=== PATIENT | female | born 1955 | race Caucasian/White ===

== ENCOUNTER 2017-03-20 19:29 | Emergency (ER) | payer OTHER ==
[2017-03-20 19:44] VITALS: BP 131/77; PULSE 75; TEMP 97.8; BMI 20.7
--- NOTE | 2017-03-20 20:50 | PDOC ---
History of Present Illness - General Chief Complaint: Pain, Acute Stated Complaint: LEFT KNEE PAIN Time Seen by Provider: 03/20/17 20:14 History Source: Patient Exam Limitations: No Limitations - History of Present Illness Initial Comments: 03/20/17 20:45 CHIEF COMPLAINT: Left knee pain HISTORY OF PRESENT ILLNESS: She is a 61-year-old female, history of Mnire's disease otherwise unremarkable yet has seen Dr. rushing in the last week for pain to left knee. Was diagnosed with arthritic changes. After seeing Dr. rushing was home went to open the window turned and felt a strain to left knee was unable to initially bear weight now able to ambulate with minor pain. Pain to left posterior knee. There is no erythema edema or deformity. REVIEW OF SYSTEMS: GENERAL: Afebrile, A&O x3 RESPIRATORY: No cough, wheezing, or hemoptysis. CARDIAC: No CP or SOB MUSCULOSKELETAL: Pain to left posterior knee no anterior pain SKIN : No erythema, no edema, no bruising, no deformity. NEUROLOGICAL: Denies any numbness or tingling. PHYSICAL EXAM: GENERAL: The patient is awake, alert, and fully oriented, in no acute distress. HEAD: Normal with no signs of trauma. RESPIRATORY: Lungs clear bilaterally no rhonchi, rales, or wheezes CARDIAC: S1-S2 audible, no murmur rub or gallop EXTREMITIES: Decreased range of motion to left knee related to pain, no fluid appreciated, no bulge sign. No pain to superior or inferior patella. Negative drop test. Negative posterior leg test. No joint laxity noted, no ecchymosis, no deformity, no abrasions ,no edema. +3 popliteal pulse. Negative Homans sign. No calf pain or tenderness, no erythema or edema. MUSCULOSKELETAL: No spinal point tenderness. SKIN: Warm, Dry, normal turgor, no erythema, no edema no bruising. Past History - Past Medical History Allergies/Adverse Reactions: Allergies Allergy/AdvReac Type Severity Reaction Status Date / Time No Known Allergies Allergy Verified 03/20/17 19:32 Home Medications: Ambulatory Orders Levocetirizine Dihydrochloride 5 mg PO ASDIR 03/20/17 Potassium Chloride [Klor-Con 10] 10 meq PO ASDIR 03/20/17 Triamterene/Hydrochlorothiazid [Triamterene-Hctz 37.5-25 mg Cp] 37.5 mg PO ASDIR 03/20/17 Other medical history: meneires disease - Surgical History Cholecystectomy: Yes - Immunization History Immunization Up to Date: Yes - Psycho/Social/Smoking Cessation Hx Suicidal Ideation: No Smoking History: Former smoker Have you smoked in the past 12 months: No If you are a former smoker, when did you quit?: 1990 Information on smoking cessation initiated: No Hx Alcohol Use: No Drug/Substance Use Hx: No Substance Use Type: None *Physical Exam - Vital Signs Last Vital Signs Temp Pulse Resp BP Pulse Ox 97.8 F 75 16 131/77 99 03/20/17 19:32 03/20/17 19:32 03/20/17 19:32 03/20/17 19:32 03/20/17 19:32 Medical Decision Making - Medical Decision Making 03/20/17 20:48 A/P: Patient with pain to left knee however pain is resolving. There was no acute injury, patient felt a strain to knee however there is no direct trauma. Recently had x-rays which diagnosed her with arthritic changes. Because it was no direct trauma to knee, will apply knee immobilizer and follow-up with Dr. rushing in the a.m. Continue Naprosyn as previously ordered. I discussed the physical exam findings and final diagnoses with the patient. I answered all of the patient's questions. The patient was satisfied with the care received and felt comfortable with the discharge plan and treatment plan. The patient will call tomorrow to arrange follow-up and will return to the Emergency Department with any new, persistent or worsening symptoms. *DC/Admit/Observation/Transfer Diagnosis at time of Disposition: Knee hemarthrosis, left - Discharge Dispostion Disposition: HOME Condition at time of disposition: Good Admit: No - Referrals Referrals: Clarke Montgomery MD [Primary Care Provider] - Pacheco Rushing MD [Staff Physician] - - Patient Instructions Additional Instructions: 1. Please return to the emergency department with any redness, swelling, increased pain, or any other concerns. 2. Keep knee immobilizer on 3. Please follow up in the office of Dr. rushing tomorrow 4. Ice and elevate when at rest. 5. Continue Naprosyn for pain
== END 2017-03-20 20:50 | disposition home or self-care (01) ==
LOC: JERFT 19:29 → JER 19:29 → JERFT 20:50
DX: M25.062 Hemarthrosis, left knee (principal)
CPT/HCPCS: 99281-25

== ENCOUNTER 2017-04-18 11:11 | Day surgery (SDC) | payer OTHER ==
[2017-04-17 11:12] VITALS: BMI 23.3
--- NOTE | 2017-04-18 08:12 | HP ---
[facility] - Chief Complaint Chief Complaint: left knee pain - Past Medical History Allergies/Adverse Reactions: Allergies Allergy/AdvReac Type Severity Reaction Status Date / Time No Known Allergies Allergy Verified 04/17/17 11:03 - Current Medications Current Medications: Home Medications Medication Instructions Recorded Levocetirizine Dihydrochloride 5 mg PO ASDIR 03/20/17 Potassium Chloride [Klor-Con 10] 10 meq PO ASDIR 03/20/17 Triamterene/Hydrochlorothiazid 37.5 mg PO ASDIR 03/20/17 [Triamterene-Hctz 37.5-25 mg Cp] Oxycodone HCl/Acetaminophen 1 - 2 tab PO Q6H #50 tab MDD 8 04/18/17 [Percocet 5-325 mg Tablet -] [facility]ellite Physical Exam - Physical Examination General Appearance: Well Nourished, Well Developed, Alert & Oriented x3 ENT: Clear Lung: Normal air movement Heart: Regular rate & rhythm Extremities: Other (left knee- + swelling, + ttp, decr rom, + glo, + apley , nvi MRi mmt) Neurological: Intact, Alert, Oriented Satellite Impression/Plan - Impression/Plan Impression: left knee internal derangement Operative Procedure: left knee arthroscopy Date to be Performed: 04/18/17
[~2017-04-18 11:11] MED LIST: BUPIVACAINE HCL/PF 0.5% (5MG/ML) 10 ML VIAL IJ ONE; LIDOCAINE 1%/EPI 1:100000 (20 ML MULTI DOSE VIAL) INF ONE
[2017-04-18] MEDS ORDERED: BUPIVACAINE HCL/PF 0.5% (5MG/ML) 10 ML VIAL ONE (11:18)
[2017-04-18] MEDS ORDERED: MIDAZOLAM HCL 2 MG/2 ML SINGLE DOSE VIAL ONE (12:45)
[2017-04-18] MEDS ORDERED: LIDOCAINE HCL/PF 2% SDV 5ML VIAL ONE (12:49)
[2017-04-18] MEDS ORDERED: PROPOFOL 20 ML ONE (12:49)
[2017-04-18] MEDS ORDERED: DEXAMETHASONE SOD PHOSPHATE 4 MG/1 ML VIAL ONE (12:50)
[2017-04-18] MEDS ORDERED: ONDANSETRON 4 MG/2 ML VIAL ONE (12:50)
[2017-04-18] MEDS ORDERED: BUPIVACAINE HCL/PF 0.5% (5MG/ML) 10 ML VIAL IJ ONE (13:08)
[2017-04-18] MEDS ORDERED: LIDOCAINE 1%/EPI 1:100000 (20 ML MULTI DOSE VIAL) INF ONE (13:08)
--- NOTE | 2017-04-18 13:27 | OP ---
Operative Note - Note: Operative Date: 04/18/17 Pre-Operative Diagnosis: internal derangement left knee Operation: arthroscopy left knee with partial medial meniscectomy Post-Operative Diagnosis: Same as Pre-op Surgeon: Ken Dorsey Wardrobe Attendant: Pacheco Rushing Anesthesia: General Estimated Blood Loss (mls): 0
[2017-04-18] MEDS ORDERED: ONDANSETRON 4 MG/2 ML VIAL IVPUSH PRN (13:38)
[2017-04-18] MEDS ORDERED: oxyCODONE HCL 5 MG TABLET PO PRN (13:38)
[2017-04-18] MEDS ORDERED: LACTATED RINGERS SOLUTION 1,000 ML IV SCH (13:45)
[2017-04-18 14:18] VITALS: TEMP 98
[2017-04-18 15:06] VITALS: BP 130/72; PULSE 66
--- NOTE | 2017-04-19 11:31 | OP ---
DATE OF OPERATION: 04/18/2017 PREOPERATIVE DIAGNOSIS: Internal derangement, left knee. POSTOPERATIVE DIAGNOSIS: Internal derangement, left knee. PROCEDURE: Arthroscopy, left knee, and partial medial meniscectomy. SURGICAL ATTENDING: Ken Dorsey MD 1ST [employer] REPRESENTATIVE: Pacheco Rushing MD ANESTHESIA: General and LMA. CLOSURE: Nylon 4-0. COMPLICATIONS: None. CONDITION: To recovery room in stable condition. DESCRIPTION OF OPERATIVE PROCEDURE: Patient taken to the operating room on April 18, 2017. General anesthesia with LMA was administered by the anesthesiologist. IV Kefzol administered prophylactically prior to the case. Left lower extremity was prepped and draped in the usual sterile fashion. Superolateral, mediolateral, and infrapatellar portal sites were infiltrated with 1% Xylocaine with epinephrine. A superolateral portal was made with a 15 blade followed by a blunt trocar. Scope was placed in the lateral infrapatellar portal and up into the suprapatellar pouch. The pouch was visualized to be clean. The medial and lateral gutters were visualized to be clean. The undersurface of the patella and trochlea were visualized to be intact. With valgus stress on the knee, the medial compartment was entered. The posterior horn of the medial meniscus probed and found to be intact. There was a flap tear anteriorly which was debrided using the arthroscopic shaver and biters. The medial femoral condyle was run, found to be intact. There were no defects on the articular cartilage. The medial tibial plateau was the same. At 90 degrees, the ACL was visualized and probed. It was found to be intact. In the figure-4 position, the lateral compartment was entered. Lateral meniscus was visualized, probed, found to be intact. Lateral femoral condyle was run and found to be intact as was the lateral tibial plateau. The knee was irrigated with copious amounts of irrigation. The portals were closed with 4-0 nylon. Prior to closure, 20 mL of 0.5% Marcaine infused into the knee for postoperative analgesia. A sterile pressure dressing was placed over the knee. Patient awakened from anesthesia, transferred to recovery in stable condition. No complication. Estimated blood loss negligible. Arian [id number]
--- NOTE | 2017-04-22 16:09 | PATH ---
Surgical Pathology Report Patient Name: ADAIR TAMEZ [facility]. Rec. #: [id number] /Age/Gender: 1955 (Age: 61) / F Account: [id number] Location: [facility] SURGICAL Taken: 04/18/2017 Received: 04/21/2017 Reported: 04/22/2017 Physicians: Pacheco Rushing M.D. 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 Electronically Signed Atn Marie M.D. Gross Description Received in formalin, labeled "left knee shavings" is a 4.0 x 3.2 x 0.3 cm aggregate of wei-yellow soft tissue fragments. A architectural representative portion is submitted in one cassette. /04/21/201704/21/2017
== END 2017-04-18 15:24 | disposition home or self-care (01) ==
LOC: JASU-SURG 11:11
PROVIDERS: ATTEND Orthopaedic Surgery
PROC: 0SBD4ZZ Excision of Left Knee Joint, Percutaneous Endoscopic Approach (ICD-10-PCS; principal; 2017-04-18 12:30)
DX: M23.304 Other meniscus derangements, unspecified medial meniscus, left knee (principal)
CPT/HCPCS: 88304-TC; 94760

== ENCOUNTER 2018-04-16 11:14 | Day surgery (SDC) | payer OTHER ==
[2018-04-14 15:44] VITALS: BMI 22.6
[2018-04-16] MEDS ORDERED: MIDAZOLAM HCL 2 MG/2 ML SINGLE DOSE VIAL ONE ×2 (14:02)
[2018-04-16] MEDS ORDERED: ceFAZolin SODIUM 1 GM VIAL IVPB ONE (14:10)
[2018-04-16] MEDS ORDERED: PROPOFOL 20 ML ONE ×2 (14:13→14:44)
[2018-04-16] MEDS ORDERED: BUPIVACAINE 0.25% /EPI 1:200,000 10 ML VIAL INF ONE (14:20)
[2018-04-16] MEDS ORDERED: BETAMET ACET/BETAMET NA PH 30 MG/5 ML VIAL ONE (14:34)
[2018-04-16] MEDS ORDERED: BETAMET ACET/BETAMET NA PH 30 MG/5 ML VIAL IM ONE ×2 (14:55)
[2018-04-16] MEDS ORDERED: LIDOCAINE HCL 2% (50ML VIAL) NR ONE ×2 (15:10)
[2018-04-16] MEDS ORDERED: KETOROLAC TROMETHAMINE 30 MG/1 ML VIAL ONE (15:46)
[2018-04-16] MEDS ORDERED: oxyCODONE HCL 5 MG TABLET PO PRN (16:33)
[2018-04-16] MEDS ORDERED: LACTATED RINGERS SOLUTION 1,000 ML IV SCH (16:45)
[2018-04-16 19:14] VITALS: BP 124/68; PULSE 74
--- NOTE | 2018-04-20 09:52 | OP ---
DATE OF OPERATION: 04/16/2018 SURGEON: Asad Price DPM ANESTHESIA TYPE: MAC ANESTHESIOLOGIST: Dr. Diaz and Dr. Curtis DIAGNOSIS: 1. Hammertoe, fifth digit bilaterally. 2. Tailor bunion deformity, bilaterally. 3. Mallet toe, flexible, 2, 3, 4, bilaterally. 4. Contractures, metatarsophalangeal joints 2, 3, 4 bilaterally. DESCRIPTION OF PROCEDURE: The patient was brought to the OR, placed on the OR table in the supine position. Neuroleptic anesthesia was administered and ankle blocks were performed using 0.25% Marcaine with epinephrine 1:200,000 bilaterally. Both feet were prepped and draped in the usual sterile fashion. Then, the right foot was elevated for approximately 5 minutes and a well-padded pneumatic ankle tourniquet was inflated to 250 mmHg to effect hemostasis. It should be noted that once the procedures were performed on the right foot, the tourniquet was deflated on the right. Then, the left foot was elevated for 5 minutes and the well-padded pneumatic ankle tourniquet was inflated to 250 mmHg to effect hemostasis. Procedure Number 1: Arthroplasty, PIPJ, 5th digit, right. Attention was directed to the PIPJ 5th digit right where two converging semi- elliptical incisions were created. A wedge of skin was removed in toto. Then, a transverse incision was made into the proximal phalangeal joint and medial and lateral collateral ligaments, resecting the head of the proximal phalangeal joint delivered into the wound site and resected using double action bone cutting forceps. All bony edges were rasped smooth. The prominent lateral portion of the middle phalanx was also resected using double action bone cutting forceps. Repair was performed using 4-0 Vicryl for the extensor tendon and 4-0 nylon for skin. Procedure Number 2: Partial removal of bone 5th metatarsal right. Attention was directed to the 5th metatarsal head laterally where a prominent portion was noted. A linear incision was made over the talus bunion deformity. The incision was deepened down to the subcutaneous tissue, maintaining hemostasis as necessary with 4-0 Vicryl ligature. Superficial fascia was freed from the deep fascia, the joint capsule was identified and a linear incision was made into that. Subcapsular and subperiosteal dissection was completed. The head of the thick metatarsal was delivered into the wound site and resected using the sagittal saw. All bony incisions were rasped smooth and the wound flushed with sterile saline. Closure was performed using 4-0 Vicryl for joint capsule, subcutaneous closure, 4-0 nylon for skin. Procedure Number 3: Tenotomy and capsulotomy, second metatarsophalangeal joint, right foot. A linear incision was made between the 2nd and 3rd MPJs. The incision was taken down to subcutaneous tissue, maintaining hemostasis as necessary with 4-0 Vicryl ligature and Bovie cautery. Attention was directed to the extensor tendon complex of the 3rd MPJ where an open Z-plasty was performed. Then, a U-shaped capsulotomy was made into the 2nd metatarsophalangeal joint complex. The contracture was noted to reduce. The wound was flushed with sterile saline. Procedure Number 4: Tenotomy and capsulotomy, 3rd metatarsophalangeal joint, right foot. With exposure gained from the previous procedure . Attention was directed to the extensor tendon complex of the 3rd MPJ where an open Z-plasty was performed. Then, a U-shaped capsulotomy was made into the 3rd MPJ. Subcapsular and subperiosteal dissection was completed. The medial and lateral collateral ligaments were sectioned and the contracture was noted to reduce. The wound site was flushed with sterile saline. Repair of the extensor tendon complex was performed with 4-0 Vicryl, subcutaneous closed with 4-0 Vicryl, and skin closed with 4-0 nylon. Procedure Number 5: Tenotomy and Capsulotomy of the 4th metatarsal phalangeal joint right . With exposure gained from a previous procedure, attention was then directed to the 4th metatarsophalangeal joint complex. The extensor tendon was identified and an open Z-plasty was performed. Then, a U-shaped capsulotomy was made into the 4th MPJ and contracture was noted to reduce. The wound site was flushed with sterile saline. Repair of the extensor tendon complex was performed using 4-0 Vicryl, skin closed with 4-0 nylon. Procedure Number 6: Flexor tenotomy, DIPJ, 4th digit, left. Attention was directed to the plantar aspect of the DIPJ, 4th digit, left. A plantar transverse incision was made down through the skin into the long flexor and joint capsule of the DIPJ. Transverse tenotomy and capsulotomy were created. The wound site was flushed with sterile saline and closed with Steri-Strips. Procedure Number 7: Flexor tenotomy and capsulotomy, DIPJ, 3rd digit, right. Attention was directed to the plantar aspect of the DIPJ where a transverse incision was made. The incision was deepened down to the flexor tendon and joint capsule. A tenotomy and capsulotomy were created and the contracture was noted to reduce. Closure was performed using Steri-Strips. Procedure Number 8: Flexor tenotomy, DIPJ, 2nd digit, right. Attention was directed to the plantar aspect of the DIPJ, 2nd digit, right, where a linear incision was made transversely into the DIPJ. The incision was deepened down the flexor tendon and joint capsule of the DIPJ, 2nd digit, right and the contracture was noted to reduce. The wound site was flushed with sterile saline. Closure was performed with Steri-Strips. Procedure Number 9: Arthroplasty, PIPJ, 5th digit, left. Attention was directed to the PIPJ of the 5th digit, left. Two converging semi- elliptical incisions were created and a wedge of skin was removed in toto. Attention was then directed to the extensor tendon complex and a linear incision was made into the PIPJ of the 5th digit, left. The medial and lateral collateral ligaments were sectioned. The head of the proximal phalanx of the 5th digit was delivered into the wound site and resected using a double action bone cutting forceps. Attention was then directed to the prominent lateral portion of the middle phalanx, which was also resected. Bone edges were rasped smooth. The wound site was flushed with sterile saline. Closure was performed using 4-0 Vicryl for the extensor tendon and 4-0 nylon for skin. Procedure Number 10: Partial removal of bone, 5th metatarsal, left. Attention was directed to the 5th metatarsophalangeal joint, left. A linear incision was made over the prominent tailor bunion deformity. The incision was deepened down to the subcutaneous tissue, maintaining hemostasis as necessary with 4-0 Vicryl ligature. Superficial fascial was freed from the deep fascia. The joint capsule was identified and a linear incision was made into the joint capsule. Subcapsular and subperiosteal dissection was completed. The head of the 5th metatarsal was delivered into the wound site and resected using the sagittal saw. All bony edges were rasped smooth. The wound site was flushed with sterile saline. Closure was performed using 4-0 Vicryl for joint capsule, subcutaneous closure and 4-0 nylon for skin. Procedure Number 11: Tenotomy and capsulotomy, 2nd metatarsophalangeal joint, left foot. A linear incision was made between the 2nd and 3rd MPJs. The incision was deepened down through subcutaneous tissue and hemostasis was maintained as necessary with 4-0 Vicryl ligature. Superficial fascia was freed from the deep fascia. The extensor tendon complex was identified at the 2nd MPJ and an open Z-plasty was performed. Then, a U-shaped capsulotomy was made into the 2nd MPJ. The medial and lateral collateral ligaments were sectioned and the contracture was noticed to reduce. The wound site was flushed with sterile saline. Repair of the extensor tendon was performed with 4-0 Vicryl. Procedure Number 12: Tenotomy and capsulotomy, 3rd metatarsophalangeal joint complex, left. With exposure gained from the previous procedure, attention was directed to the extensor tendon complex over the 3rd MPJ. An open Z-plasty was performed. Then, a U-shaped capsulotomy was made into the 3rd MPJ. The medial and lateral collateral ligaments were sectioned and the contracture was noted to reduce. The wound site was flushed with sterile saline. Repair of the extensor tendon complex was performed with 4-0 Vicryl, subcutaneous closure 4-0 Vicryl, skin closure 4-0 nylon. Procedure Number 13: Tenotomy and capsulotomy, 4th metatarsophalangeal joint complex, left. With the exposure gained from the previous procedure, attention was directed to the extensor tendon complex of the 4th MPJ. An open Z-plasty was performed. Then, a U- shaped capsulotomy was made into the 4th MPJ. Medial and lateral collateral ligaments were sectioned and the contracture was noted to reduce at the 4th MPJ. Repair was performed using 4-0 Vicryl for extensor tendon complex subcutaneous closure, 4-0 nylon for skin. Procedure Number 14: Flexor tenotomy, DIPJ, 4th digit, left. Attention was directed to the plantar aspect of the DIPJ, 4th digit, left. A transverse incision was made plantarly from medial to lateral. The incision was deepened down through subcutaneous tissue, the long flexor tendon and joint capsule of the DIPJ. A transverse tenotomy and capsulotomy were created and the contracture was noted to reduce. Closure was performed by Steri-Strips. Procedure Number 15: Flexor tenotomy and capsulotomy, DIPJ, 3rd digit, left. Attention was directed to the plantar aspect of the DIPJ, 3rd digit, left. A transverse incision was made plantarly down to the level of the long flexor tendon and joint capsule of the DIPJ. A transverse tenotomy and capsulotomy were created and the contracture was noted to reduce. Closure was performed using Steri- Strips. Procedure Number 16: Flexor tenotomy and capsulotomy, DIPJ, 2nd digit, left. Attention was directed to the plantar aspect of the DIPJ, 2nd digit, left. A linear incision was made plantarly transversely. The incision was deepened down to the long flexor tendon and joint capsule of the DIPJ transversely. Tenotomy and capsulotomy were created and the contracture was noted to reduce. The wound site was flushed with sterile saline. Closure was performed using Steri-Strips. Postoperatively, all surgical sites were dressed with sterile 4 x 4's, Sumit, Steri-Strips, Coban and Kerlix. Both well-padded pneumatic ankle tourniquets were deflated and a normal hyperemic flush was noted to return to all digits of both feet. The patient tolerated the procedure and anesthesia well and left the OR for the recovery room with vital signs stable and in an apparently satisfactory condition. ASAD PRICE DPM [id number] MTDD
--- NOTE | 2018-04-20 10:22 | PATH ---
Surgical Pathology Report Patient Name: ADAIR TAMEZ [facility]. Rec. #: [id number] /Age/Gender: 1955 (Age: 62) / F Account: [id number] Location: [facility] SURGICAL Taken: 04/16/2018 Received: 04/17/2018 Reported: 04/20/2018 Physicians: Asad Wilson DPM Specimen(s) Received A: BONE AND SOFT TISSUE RIGHT 5TH TOE B: RIGHT 5TH TOE NERVE C: BONE 5TH METATARSAL RIGHT FOOT D: BONE AND SOFT TISSUE LEFT 5TH TOE E: BONE 5TH METATARSAL LEFT FOOT Clinical History Bunion bilateral feet, fifth hammertoe bilateral Final Diagnosis A. BONE AND SOFT TISSUE, FOOT, RIGHT, TOE, BUNIONECTOMY: BONE WITH DEGENERATIVE CHANGES. FRAGMENTS OF DENSE FIBROCONNECTIVE TISSUE. SKIN WITHOUT SIGNIFICANT PATHOLOGIC FINDINGS. B. NERVE, FIFTH TOE, RIGHT, EXCISION: PORTION OF NERVE TISSUE. C. BONE, FOOT, RIGHT, FIFTH METATARSAL, BUNIONECTOMY: BONE WITH DEGENERATIVE CHANGES. FRAGMENT OF FIBROADIPOSE TISSUE. D. BONE AND SOFT TISSUE, FOOT, LEFT, TOE, BUNIONECTOMY: BONE WITH DEGENERATIVE CHANGES. FRAGMENTS OF DENSE FIBROCONNECTIVE TISSUE AND SKIN WITHOUT SIGNIFICANT PATHOLOGIC FINDINGS. E. BONE, FOOT, LEFT, FIFTH METATARSAL, BUNIONECTOMY: BONE WITH DEGENERATIVE CHANGES. FRAGMENT OF FIBROADIPOSE TISSUE. Electronically Signed Cecile Montague M.D. Gross Description A. Received in formalin labeled "bone and soft tissue right fifth toe," is a 1.5 x 1.2 x 0.3 cm aggregate of multiple portions of bone, skin and soft tissue. The specimen is entirely submitted in one cassette, following decalcification. B. Received in formalin labeled "nerve right fifth toe," is a 0.6 cm in greatest dimension wei-white tissue fragment, consistent with a portion of nerve. The specimen is submitted in toto in one cassette. C. Received in formalin labeled "bone fifth metatarsal right foot," is a 1.2 x 1.0 x 0.2 cm aggregate of wei bone fragments. The specimen is entirely submitted in one cassette, following decalcification. D. Received in formalin labeled "bone and soft tissue left fifth toe," is a 1.6 x 1.3 x 0.3 cm aggregate of multiple portions of bone and skin. The specimen is entirely submitted in one cassette, following decalcification. E. Received in formalin labeled "bone fifth metatarsal left foot," is a 1.1 x 0.7 x 0.2 cm wei, irregular portion of bone. The specimen is bisected and entirely submitted in one cassette, following decalcification. 04/17/201804/17/2018
[2018-04-20 12:58] VITALS: TEMP 97.8
== END 2018-04-16 18:05 | disposition home or self-care (01) ==
LOC: JASU-SURG 11:14
PROVIDERS: ATTEND Podiatrist
PROC: 0QSP04Z Reposition Left Metatarsal with Internal Fixation Device, Open Approach (ICD-10-PCS; 2018-04-16)
PROC: 0QSN04Z Reposition Right Metatarsal with Internal Fixation Device, Open Approach (ICD-10-PCS; 2018-04-16)
PROC: 0QBP0ZZ Excision of Left Metatarsal, Open Approach (ICD-10-PCS; 2018-04-16)
PROC: 0QBN0ZZ Excision of Right Metatarsal, Open Approach (ICD-10-PCS; 2018-04-16)
PROC: 0SNM0ZZ Release Right Metatarsal-Phalangeal Joint, Open Approach (ICD-10-PCS; 2018-04-16)
PROC: 0SNM0ZZ Release Right Metatarsal-Phalangeal Joint, Open Approach (ICD-10-PCS; 2018-04-16)
PROC: 0SNM0ZZ Release Right Metatarsal-Phalangeal Joint, Open Approach (ICD-10-PCS; 2018-04-16)
PROC: 0LQV0ZZ Repair Right Foot Tendon, Open Approach (ICD-10-PCS; 2018-04-16)
PROC: 0LQV0ZZ Repair Right Foot Tendon, Open Approach (ICD-10-PCS; 2018-04-16)
PROC: 0LQV0ZZ Repair Right Foot Tendon, Open Approach (ICD-10-PCS; 2018-04-16)
PROC: 0SRQ0JZ Replacement of Left Toe Phalangeal Joint with Synthetic Substitute, Open Approach (ICD-10-PCS; principal; 2018-04-16 13:00)
DX: M20.42 Other hammer toe(s) (acquired), left foot (principal); M20.41 Other hammer toe(s) (acquired), right foot; M21.622 Bunionette of left foot; M21.621 Bunionette of right foot; M24.575 Contracture, left foot; M24.574 Contracture, right foot
CPT/HCPCS: 88302-TC; 88304-TC; 88311-TC; 94760